=== PATIENT | female | born 1950 | race American Indian/Alaskan Native ===

== ENCOUNTER 2017-01-28 10:11 | Outpatient (CLI) | payer MEDICARE ==
[2017-01-28 10:28] LABS: Hematocrit 39.8 % (30.3-42.9); Hemoglobin 13.2 gm/dl (10.1-14.3); Mean Corpuscular HGB Conc 33 % (30-34); Mean Corpuscular Hemoglobin 30 pg (28-32); Mean Corpuscular Volume 92 fl (79-97); Platelet Count 185 K/mm3 (140-440); Red Blood Count 4.32 M/mm3 (3.65-5.03); Red Cell Distribution Width 14.3 % (13.2-15.2); White Blood Count 4.1 K/mm3 (4.5-11.0)
[2017-01-28 10:51] LABS: Albumin 3.6 g/dL (3.9-5); BUN/Creatinine Ratio 23.52; Calcium 8.6 mg/dL (8.4-10.2); Chloride 103.4 mmol/L (98-107); Phosphorous 3.5 mg/dL (2.5-4.5); Potassium 5.1 mmol/L (3.6-5.0)
== END 2017-01-28 10:12 | disposition home or self-care (01) ==
LOC: LAB 10:11
DX: E11.21 Type 2 diabetes mellitus with diabetic nephropathy (principal); I10 Essential (primary) hypertension; R80.0 Isolated proteinuria; N25.81 Secondary hyperparathyroidism of renal origin; M10.9 Gout, unspecified
CPT/HCPCS: 36415; 80048; 82040; 82043; 84100; 85027

== ENCOUNTER 2017-10-07 08:59 | Outpatient (CLI) | payer MEDICARE ==
[2017-10-07 09:27] LABS: Albumin 3.7 g/dL (3.9-5)
== END 2017-10-07 09:00 | disposition home or self-care (01) ==
LOC: LAB 08:59
DX: E11.21 Type 2 diabetes mellitus with diabetic nephropathy (principal); I10 Essential (primary) hypertension; N25.81 Secondary hyperparathyroidism of renal origin; M10.9 Gout, unspecified; R80.0 Isolated proteinuria
CPT/HCPCS: 36415; 80048; 82040; 84100

== ENCOUNTER 2018-03-07 09:30 | Outpatient (CLI) | payer MEDICARE ==
[2018-03-07 09:58] LABS: Hemoglobin 12.7 gm/dl (10.1-14.3); Mean Corpuscular HGB Conc 33 % (30-34); Mean Corpuscular Hemoglobin 30 pg (28-32); Mean Corpuscular Volume 91 fl (79-97); Platelet Count 245 K/mm3 (140-440); Red Cell Distribution Width 13.5 % (13.2-15.2)
[2018-03-07 10:32] LABS: Albumin 3.6 g/dL (3.9-5); Calcium 9.1 mg/dL (8.4-10.2)
[2018-03-07 10:39] LABS: Microalbumin/Creatinine Ratio 283.6 ug/mg
== END 2018-03-07 09:31 | disposition home or self-care (01) ==
LOC: LAB 09:30
DX: E11.21 Type 2 diabetes mellitus with diabetic nephropathy (principal); I10 Essential (primary) hypertension; R94.4 Abnormal results of kidney function studies; M10.9 Gout, unspecified
CPT/HCPCS: 36415; 80053; 82043; 83970; 85027

== ENCOUNTER 2018-07-18 08:56 | Outpatient (CLI) | payer MEDICARE ==
[2018-07-18 09:17] LABS: Hematocrit 44.4 % (30.3-42.9); Hemoglobin 14.5 gm/dl (10.1-14.3); Mean Corpuscular HGB Conc 33 % (30-34); Mean Corpuscular Volume 89 fl (79-97); Platelet Count 208 K/mm3 (140-440); Red Blood Count 4.98 M/mm3 (3.65-5.03)
[2018-07-18 09:31] LABS: Bacteria,Urine 2+ /HPF (Negative); Bilirubin,Urine NEG (Negative); Blood,Urine MOD (Negative); Color,Urine Yellow (Yellow); Mucus,Urine FEW /HPF; Urobilinogen,Urine < 2.0 mg/dL (<2.0)
[2018-07-18 09:46] LABS: Calcium 9.2 mg/dL (8.4-10.2)
[2018-07-18 17:28] LABS: Creatinine,Urine 47.4 mg/dL (0.1-20.0)
[2018-07-18 17:44] LABS: Microalbumin/Creatinine Ratio 1911.3 ug/mg
== END 2018-07-18 08:57 | disposition home or self-care (01) ==
LOC: LAB 08:56
PROVIDERS: ATTEND Internal Medicine Nephrology
DX: N18.3 Chronic kidney disease, stage 3 (moderate) (principal); N25.81 Secondary hyperparathyroidism of renal origin
CPT/HCPCS: 36415; 80048; 81001; 82040; 82043; 82306; 83970; 84100; 85027

== ENCOUNTER 2018-09-27 08:36 | Outpatient (CLI) | payer MEDICARE ==
[2018-09-27 09:15] LABS: Hemoglobin 12.9 gm/dl (10.1-14.3); Mean Corpuscular HGB Conc 33 % (30-34); Mean Corpuscular Volume 88 fl (79-97); Platelet Count 209 K/mm3 (140-440); Red Blood Count 4.41 M/mm3 (3.65-5.03); Red Cell Distribution Width 13.3 % (13.2-15.2)
[2018-09-27 09:39] LABS: Albumin 3.8 g/dL (3.9-5); Calcium 9.1 mg/dL (8.4-10.2); Uric Acid 6.1 mg/dL (3.5-7.6)
[2018-09-27 10:01] LABS: Bacteria,Urine 2+ /HPF (Negative); Bilirubin,Urine NEG (Negative); Blood,Urine NEG (Negative); Color,Urine Straw (Yellow); Mucus,Urine FEW /HPF; Urobilinogen,Urine < 2.0 mg/dL (<2.0)
[2018-09-27 11:17] LABS: Creatinine,Urine 71.4 mg/dL (0.1-20.0)
[2018-09-27 12:17] LABS: Protein/Creatinine Ratio,Urine 0.78
== END 2018-09-27 08:37 | disposition home or self-care (01) ==
LOC: LAB 08:36
PROVIDERS: ATTEND Internal Medicine Nephrology
DX: I12.9 Hypertensive chronic kidney disease with stage 1 through stage 4 chronic kidney disease, or unspecified chronic kidney disease (principal); N18.3 Chronic kidney disease, stage 3 (moderate); E55.9 Vitamin D deficiency, unspecified; E11.22 Type 2 diabetes mellitus with diabetic chronic kidney disease; E11.21 Type 2 diabetes mellitus with diabetic nephropathy; N25.81 Secondary hyperparathyroidism of renal origin; E66.9 Obesity, unspecified; R80.9 Proteinuria, unspecified; G47.33 Obstructive sleep apnea (adult) (pediatric); M10.9 Gout, unspecified
CPT/HCPCS: 36415; 80048; 81001; 82040; 82570; 83970; 84100; 84156; 84550; 85027

== ENCOUNTER 2019-02-16 09:30 | Outpatient (CLI) | payer MEDICARE ==
[2019-02-16 10:09] LABS: Hematocrit 36.7 % (30.3-42.9); Hemoglobin 11.9 gm/dl (10.1-14.3); Mean Corpuscular HGB Conc 32 % (30-34); Mean Corpuscular Volume 94 fl (79-97); Platelet Count 188 K/mm3 (140-440); Red Blood Count 3.92 M/mm3 (3.65-5.03)
[2019-02-16 10:15] LABS: Creatinine,Urine 68.8 mg/dL (0.1-20.0); Protein/Creatinine Ratio,Urine 0.12
[2019-02-16 10:19] LABS: Albumin 3.9 g/dL (3.9-5)
[2019-02-16 10:39] LABS: Bilirubin,Urine NEG (Negative); Blood,Urine NEG (Negative); Color,Urine Straw (Yellow); Protein,Urine <15 mg/dL mg/dL (Negative); Urobilinogen,Urine < 2.0 mg/dL (<2.0)
[2019-02-19 18:09] LABS: Vitamin D, 25-OH, D2 12 ng/mL
== END 2019-02-16 09:31 | disposition home or self-care (01) ==
LOC: LAB 09:30
PROVIDERS: ATTEND Internal Medicine Nephrology
DX: I12.9 Hypertensive chronic kidney disease with stage 1 through stage 4 chronic kidney disease, or unspecified chronic kidney disease (principal); N18.3 Chronic kidney disease, stage 3 (moderate); E66.9 Obesity, unspecified; E55.9 Vitamin D deficiency, unspecified; E11.21 Type 2 diabetes mellitus with diabetic nephropathy; E11.22 Type 2 diabetes mellitus with diabetic chronic kidney disease; N25.81 Secondary hyperparathyroidism of renal origin; R80.9 Proteinuria, unspecified; G47.33 Obstructive sleep apnea (adult) (pediatric)
CPT/HCPCS: 36415; 80048; 81001; 82040; 82306; 82570; 84100; 84132; 84156; 85027; 87086

== ENCOUNTER 2019-02-23 09:49 | Outpatient (CLI) | payer MEDICARE | END 2019-02-23 09:50 | disposition home or self-care (01) | LOC: LAB 09:49 | PROVIDERS: ATTEND Internal Medicine Nephrology | DX: N18.3 Chronic kidney disease, stage 3 (moderate) (principal) | CPT/HCPCS: 36415; 84132 ==

== ENCOUNTER 2019-03-09 09:54 | Outpatient (CLI) | payer MEDICARE ==
[2019-03-09 10:36] LABS: Calcium 9.4 mg/dL (8.4-10.2)
== END 2019-03-09 09:55 | disposition home or self-care (01) ==
LOC: LAB 09:54
PROVIDERS: ATTEND Internal Medicine Nephrology
DX: N18.3 Chronic kidney disease, stage 3 (moderate) (principal)
CPT/HCPCS: 36415; 80048

== ENCOUNTER 2019-04-26 09:40 | Outpatient (CLI) | payer MEDICARE ==
[2019-04-26 10:16] LABS: Hemoglobin 13.4 gm/dl (10.1-14.3)
[2019-04-26 10:26] LABS: Bacteria,Urine 1+ /HPF (Negative); Bilirubin,Urine NEG (Negative); Blood,Urine SM (Negative); Color,Urine Straw (Yellow); Urobilinogen,Urine < 2.0 mg/dL (<2.0)
[2019-04-26 10:40] LABS: Calcium 8.9 mg/dL (8.4-10.2)
[2019-04-26 11:04] LABS: Creatinine,Urine 40.6 mg/dL (0.1-20.0); Protein/Creatinine Ratio,Urine 1.06
[2019-04-28 18:06] LABS: Vitamin D, 25-OH, D2 9 ng/mL
== END 2019-04-26 09:41 | disposition home or self-care (01) ==
LOC: LAB 09:40
PROVIDERS: ATTEND Internal Medicine Nephrology
DX: I12.9 Hypertensive chronic kidney disease with stage 1 through stage 4 chronic kidney disease, or unspecified chronic kidney disease (principal); N18.3 Chronic kidney disease, stage 3 (moderate); E11.22 Type 2 diabetes mellitus with diabetic chronic kidney disease; E11.21 Type 2 diabetes mellitus with diabetic nephropathy; N25.81 Secondary hyperparathyroidism of renal origin; M10.9 Gout, unspecified; E66.9 Obesity, unspecified; R80.9 Proteinuria, unspecified; G47.33 Obstructive sleep apnea (adult) (pediatric); E55.9 Vitamin D deficiency, unspecified
CPT/HCPCS: 36415; 80048; 81001; 82040; 82306; 82570; 83970; 84100; 84156; 85014; 85018; 87086

== ENCOUNTER 2019-08-23 09:46 | Outpatient (CLI) | payer MEDICARE ==
[2019-08-23 10:33] LABS: Calcium 9.4 mg/dL (8.4-10.2)
[2019-08-23 10:34] LABS: Hematocrit 42.5 % (30.3-42.9); Hemoglobin 13.9 gm/dl (10.1-14.3)
[2019-08-23 10:59] LABS: Bacteria,Urine 2+ /HPF (Negative); Bilirubin,Urine NEG (Negative); Blood,Urine LG (Negative); Color,Urine Straw (Yellow); Urobilinogen,Urine < 2.0 mg/dL (<2.0)
[2019-08-23 12:02] LABS: Microalbumin/Creatinine Ratio 1927.7 ug/mg
[2019-08-26 13:25] LABS: Vitamin D, 25-OH, D2 6 ng/mL
== END 2019-08-23 09:47 | disposition home or self-care (01) ==
LOC: LAB 09:46
PROVIDERS: ATTEND Internal Medicine Nephrology
DX: I12.9 Hypertensive chronic kidney disease with stage 1 through stage 4 chronic kidney disease, or unspecified chronic kidney disease (principal); E11.22 Type 2 diabetes mellitus with diabetic chronic kidney disease; N18.3 Chronic kidney disease, stage 3 (moderate); M10.9 Gout, unspecified; E66.9 Obesity, unspecified; R80.9 Proteinuria, unspecified; G47.33 Obstructive sleep apnea (adult) (pediatric); E55.9 Vitamin D deficiency, unspecified
CPT/HCPCS: 36415; 80048; 81001; 82040; 82043; 82306; 83970; 84100; 85014; 85018; 87086